=== PATIENT | female | born 1970 | race Caucasian/White ===

== ENCOUNTER → 2016-11-27 | Outpatient (CLI) | payer BC ==
[~2016-11-27] MED LIST: CINN1CAP2 PO; CRAN1CAP15 PO; VITACAP26 PO
--- NOTE | 2016-11-27 11:08 | DIAGNOSTIC IMAGING REPORT ---
ULTRASOUND RIGHT UPPER QUADRANT ABDOMEN CLINICAL HISTORY: Hepatic hemangioma. Abdominal CT dated 04/30/2011. Nuclear liver scan dated 08/01/2011. COMPARISON STUDY: Abdominal ultrasound dated 01/17/2016. TECHNIQUE: Real-time, grayscale, and color flow sonography of the right upper quadrant of the abdomen was performed. Images are reviewed in the transverse and longitudinal planes. FINDINGS: Liver: The liver is normal in size and echotexture. There is no intrahepatic biliary ductal dilatation. The main portal vein is patent. There is a 2.8 cm well-circumscribed echogenic lesion in the left hepatic lobe and a 4.5 cm well-circumscribed echogenic lesion in the right hepatic lobe. These have not significantly changed dating back to 04/30/2011 and are typical appearance for benign hemangiomas. Small hepatic cysts measure up to 1.5 cm. Gallbladder: The gallbladder is normal in appearance. No gallstones are identified. There is no gallbladder wall thickening or pericholecystic fluid. A sonographic Duke's sign is reportedly absent. The common bile duct measures up to 0.3 cm in diameter. Pancreas: Visualized portions of the pancreatic head and body are normal in appearance. Right kidney: Survey images of the right kidney demonstrate normal size and echotexture. There is no hydronephrosis. Ascites: None. IMPRESSION: 1. No acute sonographic abnormality is identified. No gallstones are seen. 2. There is unchanged appearance of 2 well-circumscribed echogenic hepatic lesions dating back to 2010. These are typical in appearance for benign hemangiomas, which was also confirmed by nuclear liver scan. No specific follow-up of these typically benign lesions is recommended. Any follow-up should be based on clinical grounds only. Electronically signed by: Cristobal Spain M.D. 11/27/2016 11:07 AM Dictated Date/Time: 11/27/2016 11:03 AM
== END | disposition home or self-care (01) ==
LOC: C.ULTR 10:14
PROVIDERS: ATTEND Internal Medicine
DX: D18.03 Hemangioma of intra-abdominal structures (principal); K76.9 Liver disease, unspecified